=== PATIENT | female | born 1990 | race Caucasian/White ===

== ENCOUNTER → 2016-08-21 | Outpatient (CLI) | payer BC | LOC: COL.VAS 08-17 08:00 | DX: I10 Essential (primary) hypertension (principal) ==

== ENCOUNTER 2020-03-25 22:26 | Outpatient (CLI) | payer BC ==
[~2020-03-25] VITALS: Ht 172.7 cm; Wt 105.5 kg
--- NOTE | 2020-03-25 22:30 | NUR ---
Pt arrives on unit ambulatory with spouse for evaluation of elevated BP at home and increase of swelling/headache. Pt states increase of swelling today, and woke up with a headache that has not resolved despite hydration and oral tylenol at 1999. Home BP diastolic noted in the 100s. Denies RUQ pain and vision changes. Reports GFM, and denies regular ctx, LOF, and vaginal bleeding. Changed into clean gown. Clean catch urine sample obtained. EFM and toco applied. Initial BP 139/92. Admission assessment completed. Pt updated on POC. Bed locked in low position. Call light within reach. No questions or concerns at this time.
[2020-03-25 22:36] VITALS: BP 135/83; PULSE 113; TEMP 98.4
[2020-03-25] MEDS ORDERED: PROCARDIA XL 6060 MG PO (22:42)
[2020-03-25] MEDS ORDERED: ALDOMET 250MG250 MG PO (22:44)
[2020-03-25] MEDS ORDERED: GALZIN50 MG PO (22:44)
[2020-03-25] MEDS ORDERED: PRENATAL (22:45)
[2020-03-25] MEDS ORDERED: SLOW FE142 MG PO (22:45)
--- NOTE | 2020-03-25 22:51 | NUR ---
Dr. Arboleda notified of pt admission. Reviewed pt hx. Orders for CBC and CMP.
[2020-03-25 23:07] LABS: BASO # 0.1 (0.0-0.2); BASO % 0.4 % (0.0-2.0); EOS # 0.1 (0.0-0.7); GRAN # 9.2 (1.4-6.5); GRAN % 68.6 % (42.2-75.2); HEMOGLOBIN 12.5 g/dl (12.5-16.0); LYMPH # 2.8 (1.2-3.4); LYMPH % 20.6 % (20.0-51.0); MEAN CELL VOLUME 88 fl (80.0-100.0); MEAN CORPUSCULAR HEMOGLOBIN 30 pg (27.0-31.0); MEAN CORPUSCULAR HGB CONC 34 g/dl (33.0-37.0); MEAN PLATELET VOLUME 10.9 fl (7.4-10.4); MONO # 1.1 (0.1-0.6); MONO % 8.5 % (1.7-9.3); PLATELET COUNT 248 K/mm3 (130-400); REDCELL DISTRIBUTION WIDTH-CV 13.4 % (11.5-14.5)
[2020-03-25 23:09] LABS: HEMATOCRIT 36.9 % (37.0-47.0)
[2020-03-25 23:19] LABS: ALBUMIN 3.6 gm/dL (3.5-5.0); BILIRUBIN,TOTAL 0.3 mg/dL (0.0-1.0); CALCIUM 9.5 mg/dL (8.4-10.2); CREATININE, serum 0.46 (0.52-1.25); POTASSIUM 3.9 mmol/L (3.4-5.0); TOTAL PROTEIN 7.2 gm/dL (6.4-8.2)
== END 2020-03-25 23:30 | disposition home or self-care (01) ==
LOC: LDRO 22:26 → LDR 22:30 → LDRO 23:30
PROVIDERS: Obstetrics & Gynecology
DX: O13.3 Gestational [pregnancy-induced] hypertension without significant proteinuria, third trimester (principal); O99.891 Other specified diseases and conditions complicating pregnancy; R51.9 Headache, unspecified; Z3A.38 38 weeks gestation of pregnancy
CPT/HCPCS: OP

== ENCOUNTER 2020-04-01 05:27 | Inpatient (IN) | payer BC ==
[~2020-04-01] VITALS: Ht 172.7 cm; Wt 104.5 kg
[2020-04-01] VITALS (19 sets, daily range): BP systolic 122–159; BP diastolic 64–87; PULSE 77–95; TEMP 97.8–99.2
--- NOTE | 2020-04-01 05:25 | NUR ---
G1L0. Pt ambulatory to 211 with spouse for scheduled . Clean gown on. EFM and TOCO explained and applied. Pt reports irregular contractions this morning and states she had some bleeding when she went to the bathroom. Vaginal bleeding assessed with minimal spotting on pts pad. Pt denies leaking of fluids. Reports good movment. VS and consents completed. 0550: IV started and labs obtained via IV site. LR bolus infusing without difficulties.
[~2020-04-01 05:27] MED LIST: ALDOMET 250MG250 MG PO; GALZIN50 MG PO; PRENATAL; PROCARDIA XL 6060 MG PO; SLOW FE142 MG PO
[2020-04-01] MEDS ORDERED: SENOKOT S 50 MG1 TAB PO (06:27)
--- NOTE | 2020-04-01 06:27 | NUR ---
[id number]: CONTRACTIONS EVERY 5-10MINS, PALPATING MODERATE WITH RELAXING PERIODS IN BETWEEN LASTING 50-180 SECONDS.
--- NOTE | 2020-04-01 08:30 | NUR ---
Patient to PACU via bed. A&Ox4, VSS, see PACU flow record. Patient comfortable from spinal. Fundal massage firm, LOCHIA moderate, brian care provided.Dressing C/D/I. Recieved report from MAURICIO Jaimes. Updated patient on plan of care and remaind in PACU per protocol.
--- NOTE | 2020-04-01 09:00 | NUR ---
0900-Patient to [facility] room via bed. Oriented to room. Spouse and at bedside.
--- NOTE | 2020-04-01 12:15 | NUR ---
Rests in bed, alert, eating noon meal. Fundal massage given, fundus firm with small amount of bleeding noted.
--- NOTE | 2020-04-01 13:45 | NUR ---
Rests in bed, alert. baby. Percocet 5/325 mg two given per request and as ordered.
--- NOTE | 2020-04-01 17:30 | NUR ---
1730-Patient easily up to bathroom, steady gait. Elias discontinued, brian care provided. Gown changed. Updated on plan of care.
[2020-04-02 00:01] VITALS: BP 120/68; PULSE 90; TEMP 98.1
[2020-04-02 04:00] VITALS: BP 126/71; PULSE 88; TEMP 97.7
[2020-04-02 08:10] VITALS: BP 116/71; PULSE 90; TEMP 97.8
--- NOTE | 2020-04-02 10:12 | NUR ---
Initial visit; Parents thanked [employer] for offering congratulations and God's blessings for the of their daughter. [facility] thanked family for choosing [facility].
[2020-04-02 17:00] VITALS: BP 118/71; PULSE 99; TEMP 97.3
[2020-04-02 20:10] VITALS: BP 120/69; PULSE 85; TEMP 98.5
[2020-04-03 07:05] VITALS: BP 130/90; PULSE 90; TEMP 97.7
[2020-04-03] MEDS ORDERED: MOTRIN 800800 MG/TAB PO (09:36)
[2020-04-03] MEDS ORDERED: PERCOCET 325 MG1 TA2 PO (09:36)
== END 2020-04-03 13:25 | disposition home or self-care (01) | DRG 787 ==
LOC: OB 05:27
PROVIDERS: ADMIT Obstetrics & Gynecology
PROC: 10D00Z1 Extraction of Products of Conception, Low, Open Approach (ICD-10-PCS; principal; 2020-04-01)
DX: O32.1XX0 Maternal care for breech presentation, not applicable or unspecified (principal); O10.92 Unspecified pre-existing hypertension complicating childbirth; Z3A.39 39 weeks gestation of pregnancy; Z37.0 Single live birth
CPT/HCPCS: J0690; J1100; J1885; J2210; J2370; J2405; J2590; J7120

== ENCOUNTER → 2023-04-26 | Outpatient (CLI) | payer BC ==
[~2023-04-26] MED LIST changes: +MOTRIN 800800 MG/TAB PO; +PERCOCET 325 MG1 TA2 PO; +SENOKOT S 50 MG1 TAB PO
== END ==
LOC: DIA.ED 09:14
DX: O24.419 Gestational diabetes mellitus in pregnancy, unspecified control (principal)
CPT/HCPCS: G0108

== ENCOUNTER 2023-09-24 05:27 | Inpatient (IN) | payer BC ==
[2023-09-24] VITALS (18 sets, daily range): BP systolic 106–147; BP diastolic 62–96; PULSE 65–86; TEMP 97.3–98
[~2023-09-24] VITALS: Ht 172.7 cm; Wt 106.8 kg
[2023-09-24] MEDS ORDERED: Meperidine 50 MG/ML 1 ML VIAL IV PRN (05:30)
[2023-09-24] MEDS ORDERED: diphenhydrAMINE 50 MG/ML 1 ML VIAL IV PRN (05:30)
[2023-09-24] MEDS ORDERED: LR 1,000 ML IV SCH (05:30)
[2023-09-24] MEDS ORDERED: droPERidol 2.5 MG/ML 2 ML VIAL IV PRN (05:30)
[2023-09-24] MEDS ORDERED: Ondansetron 4 MG/2 ML VIAL IV PRN ×2 (05:30→09:15)
--- NOTE | 2023-09-24 05:35 | NUR ---
PATIENT AND SPOUSE AMBULATORY TO UNIT. ORIENTED TO ROOM. PATIENT CHANGED INTO HOSPITAL GOWN. EFMX2 APPLIED. QUESTIONS INVITED AND ANSWERED.
[2023-09-24] MEDS ORDERED: NORMODYNE300 MG PO (06:06)
[2023-09-24] MEDS ORDERED: IRON CHEWS15 MG PO (06:06)
[2023-09-24] MEDS ORDERED: ASPIRIN 81M81 MG/TA2 PO (06:07)
--- NOTE | 2023-09-24 06:44 | NUR ---
Fasting blood sugar 90 per pt meter
[2023-09-24] MEDS ORDERED: Oxytocin 10 UNITS/ML VIAL ONE (07:10)
[2023-09-24] MEDS ORDERED: Ondansetron 4 MG/2 ML VIAL ONE (07:10)
[2023-09-24] MEDS ORDERED: NS 30 ML IV ONE (07:10)
[2023-09-24] MEDS ORDERED: dexAMETHasone 10 MG/ML VIAL ONE (07:10)
[2023-09-24] MEDS ORDERED: Ketorolac 30 MG/ML VIAL ONE (07:10)
[2023-09-24] MEDS ORDERED: EPINEPHrine 1 MG/1 ML Ampule ONE (07:11)
[2023-09-24] MEDS ORDERED: Phenylephrine 10 MG/ML VIAL ONE (07:11)
[2023-09-24] MEDS ORDERED: Magnes Hydrox (MOM) 80 MG/ML 30 ML CUP PO PRN (08:30)
[2023-09-24] MEDS ORDERED: Loratadine 10 MG TAB PO PRN (08:30)
[2023-09-24] MEDS ORDERED: Naloxone 0.4 MG/ML VIAL IV PRN (09:15)
[2023-09-24] MEDS ORDERED: Measles/Mumps/Rubella Virus Vaccine Live w Diluent 0.5 ML VIAL SQ SCH (09:15)
[2023-09-24] MEDS ORDERED: oxyCODONE/Acetaminophen 5-325 MG TAB PO PRN (09:15)
[2023-09-24] MEDS ORDERED: LR 1,000 ML IV PRN (09:15)
[2023-09-24] MEDS ORDERED: Ibuprofen 800 MG TAB PO SCH (14:30)
[2023-09-24] MEDS ORDERED: Sennosides/Docusate 8.6-50 MG TAB PO SCH (17:00)
[2023-09-24] MEDS ORDERED: traZODone 50 MG TAB PO PRN (21:00)
[2023-09-25 02:22] VITALS: BP 154/76; PULSE 86; TEMP 97.9
[2023-09-25 09:15] VITALS: BP 140/84; PULSE 84; TEMP 98
[2023-09-25 16:15] VITALS: BP 133/90; PULSE 75; TEMP 97.9
[2023-09-25 22:00] VITALS: BP 131/75; PULSE 72; TEMP 97.7
[2023-09-26] MEDS ORDERED: PERCOCET 325 MG1 TA2 PO (07:13)
[2023-09-26 07:45] VITALS: BP 152/93; PULSE 73; TEMP 98
--- NOTE | 2023-09-26 12:29 | NUR ---
DISCHARGE MATERIALS REVIEWED WITH PATIENT. PATIENT VERBALIZED UNDERSTANDING OF INFORMATION.
== END 2023-09-26 10:50 | disposition home or self-care (01) | DRG 788 ==
LOC: OB 05:27
PROVIDERS: ADMIT Obstetrics & Gynecology
PROC: 10D00Z1 Extraction of Products of Conception, Low, Open Approach (ICD-10-PCS; principal; 2023-09-24)
DX: O24.420 Gestational diabetes mellitus in childbirth, diet controlled (principal); Z3A.39 39 weeks gestation of pregnancy; Z37.0 Single live birth; O16.4 Unspecified maternal hypertension, complicating childbirth; O69.81X0 Labor and delivery complicated by cord around neck, without compression, not applicable or unspecified
CPT/HCPCS: J0171; J0665; J0690; J1100; J1885; J2371; J2405; J2590; J7120